=== PATIENT | female | born 2000 | race Caucasian/White ===

== ENCOUNTER 2020-02-19 09:22 | Emergency (ER) | payer BC ==
[2020-02-19] MEDS ORDERED: MECLIZINE HCL 25 MG TABLET PO ONE (10:39)
[2020-02-19 11:25] LABS: APPEARANCE,URINE SLIGHTLY-CLOUDY; BILIRUBIN,URINE NEGATIVE (NEGATIVE); COLOR,URINE YELLOW; GLUCOSE, URINE NEGATIVE (NEGATIVE); KETONES,URINE NEGATIVE (NEGATIVE); LEUKOCYTE ESTERASE,URINE TRACE (NEGATIVE); NITRITE,URINE NEGATIVE (NEGATIVE); PROTEIN,URINE NEGATIVE (NEGATIVE); URINE SPECIFIC GRAVITY 1.015
--- NOTE | 2020-02-19 12:30 | ER Document Report ---
Entered by NARCISA BAIN SCRIBE 02/19/20 1039 Acting as scribe for:BRADY YROK MD ED General - General Chief Complaint: Abdominal Pain Stated Complaint: ABDOMINAL PAIN Time Seen by Provider: 02/19/20 09:47 Primary Care Provider: AGAPITO,ADDIE [Primary Care Provider] - Follow up as needed Information source: Patient Notes: This 19 year old female patient presents to the ED today with complaints of nausea and vomiting the past x1-2 months. Patient states she feels nauseous when she gets up in the morning and it worsens throughout the day. Patient states she has intermittent upper abdominal pain, her bowel movement is normal and denies diarrhea. Patient states she is not on any medications, her menstrual cycle is normal, and does not have a GI history. Patient states changing her diet and excluding food groups do not lessen her symptoms. Patient states she has a headache and feels a palacios in her head when she bends over. - Related Data Allergies/Adverse Reactions: No Known Allergies Allergy (Verified 02/19/20 09:59) Past Medical History - General Information source: Patient - Social History Smoking Status: Former Smoker Cigarette use (# per day): No Chew tobacco use (# tins/day): No Frequency of alcohol use: Occasional Drug Abuse: None Family History: Reviewed & Not Pertinent Patient has homicidal ideation: No Review of Systems - Review of Systems Constitutional: No symptoms reported EENT: No symptoms reported Cardiovascular: No symptoms reported Respiratory: No symptoms reported Gastrointestinal: See HPI, Abdominal pain, Nausea, Vomiting. denies: Diarrhea Genitourinary: No symptoms reported Female Genitourinary: See HPI Musculoskeletal: No symptoms reported Skin: No symptoms reported Hematologic/Lymphatic: No symptoms reported Neurological/Psychological: See HPI, Headaches -: Yes All other systems reviewed and negative Physical Exam - Vital signs Vitals: Temp Pulse Resp BP Pulse Ox 98.7 F 79 16 118/71 98 02/19/20 09:31 02/19/20 09:31 02/19/20 09:31 02/19/20 09:31 02/19/20 09:31 - General General appearance: Appears well, Alert - HEENT Head: Normocephalic, Atraumatic Eyes: Normal Extraocular movements intact: Yes - Lateral gaze nystagmus Pupils: PERRL Ears: Normal External canal: Normal Tympanic membrane: Bulging - bilateral, Serous effusion - bilateral Pharynx: Normal - Respiratory Respiratory status: No respiratory distress Chest status: Nontender Breath sounds: Normal Chest palpation: Normal - Cardiovascular Rhythm: Regular Heart sounds: Normal auscultation Murmur: No - Abdominal Inspection: Normal Distension: No distension Bowel sounds: Normal Tenderness: Nontender - Extremities General upper extremity: Normal inspection. No: Edema General lower extremity: Normal inspection. No: Edema - Neurological Neuro grossly intact: Yes Cognition: Normal Orientation: AAOx4 Speech: Normal - Psychological Associated symptoms: Normal affect, Normal mood - Skin Skin Temperature: Warm Skin Moisture: Dry Skin Color: Normal Course - Re-evaluation Re-evalutation: 02/19/20 12:22 Patient reports her nausea has resolved. - Vital Signs Vital signs: Temp Pulse Resp BP Pulse Ox 98.7 F 79 16 118/71 98 02/19/20 09:32 02/19/20 09:31 02/19/20 09:31 02/19/20 09:31 02/19/20 09:31 - Laboratory Laboratory results interpreted by me: 02/19/20 10:57 Urine Urobilinogen 4.0 H Ur Leukocyte Esterase TRACE H Discharge - Discharge Clinical Impression: Labyrinthitis of both ears, Nausea Condition: Stable Disposition: HOME, SELF-CARE Instructions: Labyrinthitis ([facility]), Meclizine ([facility]) Additional Instructions: Labyrinthitis Labyrinthitis is a temporary disease of the inner ear. It's sometimes called vestibulitis. It often starts a few days after a cold or virus infection. Symptoms include vertigo (the spinning type of dizziness) or a sense of unsteadiness and nausea. The symptoms usually go away in a couple of days without any treatment. You should rest and keep your head still. The dizziness is worse if you move your head. Closing the eyes usually helps. Don't drive, work with dangerous machinery, or get up on ladders or scaffolds until a few days after the dizziness resolves. Medicine such as meclizine (Antivert, Bonine) can reduce the dizziness and nausea. Tranquilizers (such as diazepam) can suppress your sense of balance, reducing the unpleasantness of the vertigo. Call or return if you develop ear pain, loss of hearing, fever, severe vomiting, or any other new symptom. Prescriptions: Meclizine HCl [Antivert 25 mg Tablet] 25 mg PO TID PRN #21 tablet PRN Reason: dizziness/nausea Referrals: [facility]AL[facility],NO [Primary Care Provider] - Follow up as needed I personally performed the services described in the documentation, reviewed and edited the documentation which was dictated to the scribe in my presence, and it accurately records my words and actions.
[2020-02-19 12:59] VITALS: BP 131/78
== END 2020-02-19 12:57 | disposition home or self-care (01) ==
LOC: ER 09:22
DX: H83.03 Labyrinthitis, bilateral (principal); R11.2 Nausea with vomiting, unspecified; R10.30 Lower abdominal pain, unspecified; R51 Headache; H55.00 Unspecified nystagmus; Z87.891 Personal history of nicotine dependence
CPT/HCPCS: 81001; 81025; 99283